=== PATIENT | male | born 1990 | race Two or more races ===

== ENCOUNTER 2016-05-31 15:32 | Emergency (ER) | payer MEDICAID ==
[2016-05-31] MEDS ORDERED: KETOROLAC TROMETHAMINE INJ/PF 30 MG/1 ML SDV IM ONE (16:09)
[2016-05-31] MEDS ORDERED: PROMETHAZINE HCL INJ 50 MG/1 ML VIAL IM ONE (16:10)
[2016-05-31] MEDS ORDERED: DIPHENHYDRAMINE HCL 50 MG/ML VIAL IM ONE (16:11)
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
[2016-05-31] MEDS ORDERED: NORMAL SALINE 1000 ML 1,000 ML IV ONE ×2 (18:06→19:27)
[2016-05-31] MEDS ORDERED: BUTALB/ACETAMINOPHEN/CAFFEINE 1 TAB EACH PO ONE (18:44)
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
[2016-05-31] MEDS ORDERED: MORPHINE SULFATE 10 MG/ML INJ IV ONE (19:27)
[2016-05-31] MEDS ORDERED: HYDROCODONE/ACETAMINOPHEN 5-325 MG 6 TAB/DSPK PO PRN (20:57)
[2016-05-31 22:12] VITALS: BP 116/75
== END 2016-05-31 22:12 | disposition home or self-care (01) ==
LOC: ER 15:32
DX: R51 Headache (principal); H53.149 Visual discomfort, unspecified; F17.200 Nicotine dependence, unspecified, uncomplicated; Z87.820 Personal history of traumatic brain injury
CPT/HCPCS: 99283; 96372; 96361; 96374; J3490; J1200; J1885; J2270; J2550; J7030

== ENCOUNTER 2017-06-20 06:52 | Emergency (ER) | payer MEDICAID ==
[2017-06-20] MEDS ORDERED: CYCLOBENZAPRINE HCL 10 MG TABLET PO ONE (07:58)
[2017-06-20] MEDS ORDERED: METHYLPREDNISOLONE INJ 125 MG/2 ML SDV IM ONE (07:58)
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
[2017-06-20 09:26] VITALS: BP 106/56
== END 2017-06-20 09:26 | disposition home or self-care (01) ==
LOC: ER 06:52
DX: M53.3 Sacrococcygeal disorders, not elsewhere classified (principal); M25.551 Pain in right hip; M54.5 Low back pain; Z86.79 Personal history of other diseases of the circulatory system; F17.200 Nicotine dependence, unspecified, uncomplicated
CPT/HCPCS: 99283; 96372; 73502; 72202; J3490; J2930

== ENCOUNTER 2017-07-05 12:46 | Emergency (ER) | payer OTHER, MEDICAID ==
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
[2017-07-05] MEDS ORDERED: DIPH/PERTUSS(ACELL)/TETANUS VAC/PF 0.5 ML SYR (>=10YO) IM ONE (13:11)
[2017-07-05] MEDS ORDERED: HYDROMORPHONE HCL INJ/PF 2 MG/ML AMPULE IV ONE ×2 (13:12→17:06)
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
[2017-07-05 17:25] VITALS: BP 118/67
--- NOTE | 2017-07-05 18:01 | EKG REPORT ---
SEVERITY:- NORMAL ECG - SINUS RHYTHM : Confirmed by: Tarik Garcias 05-Jul-2017 18:00:39
== END 2017-07-05 18:05 | disposition home or self-care (01) ==
LOC: ER 12:46
DX: S29.012A Strain of muscle and tendon of back wall of thorax, initial encounter (principal); S20.312A Abrasion of left front wall of thorax, initial encounter; M25.512 Pain in left shoulder; M54.2 Cervicalgia; M54.5 Low back pain; R10.814 Left lower quadrant abdominal tenderness; F17.200 Nicotine dependence, unspecified, uncomplicated; V43.52XA Car driver injured in collision with other type car in traffic accident, initial encounter; F12.10 Cannabis abuse, uncomplicated; I25.2 Old myocardial infarction; Z86.73 Personal history of transient ischemic attack (TIA), and cerebral infarction without residual deficits
CPT/HCPCS: 93005; 96376; 99284; 90471; 96374; 72050; 71046; 73030; 72070; 73552; 73560; 73590; 74177; 90715; 93010; J1170

== ENCOUNTER 2017-07-06 02:13 | Emergency (ER) | payer MEDICAID, OTHER ==
[2017-07-06 02:17] VITALS: BP 130/74
== END 2017-07-06 03:02 | disposition left against medical advice (07) ==
LOC: ER 02:13
DX: Z53.21 Procedure and treatment not carried out due to patient leaving prior to being seen by health care provider (principal); M25.579 Pain in unspecified ankle and joints of unspecified foot

== ENCOUNTER 2018-04-11 14:44 | Emergency (ER) | payer MEDICAID ==
[2018-04-11] MEDS ORDERED: DIPHENHYDRAMINE HCL 50 MG/ML VIAL IV ONE (16:05)
[2018-04-11] MEDS ORDERED: METOCLOPRAMIDE HCL INJ/PF 10 MG/2 ML SDV IV ONE (16:05)
[2018-04-11] MEDS ORDERED: RINGERS SOLUTION,LACTATED 1,000 ML IV ONE (16:05)
[2018-04-11] MEDS ORDERED: KETOROLAC TROMETHAMINE INJ/PF 30 MG/1 ML SDV IV ONE ×2 (16:05→16:06)
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
[2018-04-11 16:41] LABS: ABSOLUTE BASOPHILS # (AUTO) 0.1 10^3/uL (0.0-0.2); ABSOLUTE EOSINOPHILS # (AUTO) 0.1 10^3/uL (0.0-0.6); ABSOLUTE MONOCYTES (AUTO) 0.6 10^3/uL (0.1-1.4); ABSOLUTE NEUT (AUTO) 7.5 10^3/uL (1.7-8.2); BASOPHILS % (AUTO) 0.5 % (0-2); EOSINOPHILS % (AUTO) 1.4 % (0-6); HEMATOCRIT 45.5 % (37.9-51.0); HEMOGLOBIN 15.9 g/dL (13.5-17.0); LYMPHOCYTES % (AUTO) 19.3 % (13-45); MEAN CORPUSCULAR HEMOGLOBIN 32.4 pg (27.0-33.4); MEAN CORPUSCULAR HGB CONC 34.8 g/dL (32.0-36.0); MEAN CORPUSCULAR VOLUME 93 fl (80-97); MONOCYTES % (AUTO) 5.4 % (3-13); PLATELET COUNT 235 10^3/uL (150-450); RED CELL DISTRIBUTION WIDTH 13.3 % (11.5-14.0); SEGMENTED NEUTROPHILS % (AUTO) 73.4 % (42-78); TOTAL CELLS COUNTED % (AUTO) 100 %; WHITE BLOOD COUNT 10.2 10^3/uL (4.0-10.5)
[2018-04-11 17:00] LABS: ALANINE AMINOTRANSFERASE < 6 U/L (21-72); ALBUMIN 5.2 g/dL (3.5-5.0); ALKALINE PHOSPHATASE 64 U/L (38-126); ANION GAP 10 (5-19); ASPARTATE AMINO TRANSFERASE 24 U/L (17-59); BILIRUBIN,DIRECT 0.2 mg/dL (0.0-0.4); BILIRUBIN,TOTAL 1.4 mg/dL (0.2-1.3); BLOOD UREA NITROGEN 13 mg/dL (7-20); CALCIUM 10.6 mg/dL (8.4-10.2); CARBON DIOXIDE 28 mmol/L (22-30); CHLORIDE 102 mmol/L (98-107); GLUCOSE 105 mg/dL (75-110); POTASSIUM 4.5 mmol/L (3.6-5.0); SODIUM 140.2 mmol/L (137-145); TOTAL PROTEIN 8.6 g/dL (6.3-8.2)
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
[2018-04-11 18:09] LABS: APPEARANCE,URINE CLEAR; BILIRUBIN,URINE NEGATIVE (NEGATIVE); COLOR,URINE YELLOW; GLUCOSE, URINE NEGATIVE (NEGATIVE); KETONES,URINE NEGATIVE (NEGATIVE); LEUKOCYTE ESTERASE,URINE SMALL (NEGATIVE); NITRITE,URINE NEGATIVE (NEGATIVE); PROTEIN,URINE NEGATIVE (NEGATIVE); URINE SPECIFIC GRAVITY 1.011; UROBILINOGEN,URINE NEGATIVE mg/dL (<2.0)
[2018-04-11 18:18] LABS: URINE AMPHETAMINES SCREEN NEGATIVE; URINE BARBITURATES SCREEN NEGATIVE; URINE BENZODIAZEPINES SCREEN NEGATIVE; URINE COCAINE SCREEN NEGATIVE; URINE MARIJUANA (THC) SCREEN UNCONFIRMED POSITIVE; URINE METHADONE SCREEN NEGATIVE; URINE PHENCYCLIDINE SCREEN NEGATIVE
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
[2018-04-11 18:46] VITALS: BP 115/68
== END 2018-04-11 18:53 | disposition home or self-care (01) ==
LOC: ER 14:44
DX: R51 Headache (principal); R42 Dizziness and giddiness; R11.2 Nausea with vomiting, unspecified; R53.1 Weakness; F17.210 Nicotine dependence, cigarettes, uncomplicated; I50.9 Heart failure, unspecified; I25.2 Old myocardial infarction; Z86.73 Personal history of transient ischemic attack (TIA), and cerebral infarction without residual deficits
CPT/HCPCS: 99406; 99284; 96361; 96374; 96375; 36415; 85025; 80053; 81001; 80307; 70450; J1200; J1885; J2765; J7120

== ENCOUNTER 2019-03-25 15:45 | Emergency (ER) | payer SELFPAY ==
--- NOTE | 2019-03-25 17:00 | ER Document Report ---
ED General <YUMIKO DAVALOS - Last Filed: 03/25/19 17:10> - General Mode of Arrival: Ambulatory Information source: Patient TRAVEL OUTSIDE OF THE [place] IN LAST 30 DAYS: No - HPI Onset: Just prior to arrival Quality of pain: No pain Associated symptoms: None Exacerbated by: Denies Relieved by: Denies Similar symptoms previously: Yes Recently seen / treated by doctor: No - Related Data Home Medications: denies <LURDES MERCEDES - Last Filed: 03/25/19 18:40> - General Chief Complaint: Suicidal Ideation Stated Complaint: SUICIDAL IDEATION Time Seen by Provider: 03/25/19 16:48 Notes: 28-year-old male presents emergency department brought over by in [facility] on July for reports of suicidal ideations. Patient reports that he was living at the [facility] because he is homeless. He reports there MPs came through and found a weed crystal flat grinder. Apparently he was taken to [facility]. He reports they were really pressuring him to give out drug dealers. He reports he got very tired of it and told them just to shoot him. Reports he just wanted to kill himself. He reports he is attempted suicide twice in the past. Once with overdose once by hanging himself. Patient reports he has a history of PTSD anxiety depression. Reports he has been on the streets for the past 7 years. Reports he used to li ve in [place] but he came down here to be with his daughter's mom. Apparently his daughter's mother a [employer]. He denies any fever vomiting diarrhea. Matthew Patel, is in the room with patient. Patient reports he would like some help. The plan is after medically cleared he will be discharged and go to [place]. Patient is agreeable to this. (LURDES MERCEDES) - Related Data Allergies/Adverse Reactions: No Known Allergies Allergy (Verified 04/11/18 14:51) Past Medical History - General Information source: Patient - Social History Smoking Status: Current Every Day Smoker Chew tobacco use (# tins/day): No Frequency of alcohol use: None Drug Abuse: Marijuana Lives with: Homeless Family History: Reviewed & Not Pertinent Patient has suicidal ideation: Yes Patient has homicidal ideation: No - Past Medical History Cardiac Medical History: Reports: Hx Heart Attack - FL from smoking K2 Neurological Medical History: Reports: Hx Cerebrovascular Accident - Stroke from smoking K2, Hx Migraine Renal/ Medical History: Denies: Hx Peritoneal Dialysis Musculoskeletal Medical History: Reports Hx Musculoskeletal Deformity, Reports Hx Musculoskeletal Trauma Psychiatric Medical History: Reports: Hx Anxiety, Hx Depression, Hx Post Traumatic Stress Disorder - Life experiences Traumatic Medical History: Reports: Hx Traumatic Brain Injury Surgical Hx: Negative - Immunizations Hx Diphtheria, Pertussis, Tetanus Vaccination: No <LURDES MERCEDES - Last Filed: 03/25/19 18:40> Review of Systems <LURDES MERCEDES - Last Filed: 03/25/19 18:40> - Review of Systems Notes: Review HPI for review of systems., All other systems negative (LURDES MERCEDES) Physical Exam <LURDES MERCEDES - Last Filed: 03/25/19 18:40> - Vital signs Vitals: Temp Pulse Resp BP Pulse Ox 98.2 F 78 20 133/87 H 100 03/25/19 15:47 03/25/19 15:47 03/25/19 15:47 03/25/19 15:47 03/25/19 15:47 - Notes Notes: PHYSICAL EXAMINATION: GENERAL: Well-appearing and in no acute distress HEAD: Atraumatic, normocephalic. EYES: extraocular movements intact, sclera anicteric, conjunctiva are normal. ENT: nares patent, Moist mucous membranes. NECK: Normal range of motion, supple without lymphadenopathy HEART: Regular rate and rhythm without LUNGS: CTAB and equal. No wheezes rales or rhonchi. murmurs ABDOMEN: Soft, no tenderness. No guarding, no rebound EXTREMITIES: Normal range of motion, NEUROLOGICAL: Cranial nerves grossly intact. Normal sensory/motor exams. PSYCH: Normal mood, normal affect. calm SKIN: Warm, Dry, normal turgor, no rashes or lesions noted (LURDES MERCEDES) Course - Laboratory Result Diagrams: 03/25/19 16:48 03/25/19 16:48 <YUMIKO DAVALOS - Last Filed: 03/25/19 17:10> - Laboratory Result Diagrams: 03/25/19 16:48 03/25/19 16:48 - EKG Interpretation by Me EKG shows normal: Sinus rhythm Rate: Normal Rhythm: NSR When compared to previous EKG there are: No significant change <LURDES MERCEDES - Last Filed: 03/25/19 18:40> - Re-evaluation Re-evalutation: 03/25/19 18:12 All labs resulted unremarkable. Positive for marijuana and cocaine. EKG normal sinus rhythm no significant changes from last EKG.. Patient will be discharged to follow-up with [facility]. Patient has a friend in the room with him. Patient verbalized understanding to plan of care and agrees. Patient was discharged with packet of labs to follow-up with [facility]. Laboratory 03/25/19 03/25/19 03/25/19 16:48 16:48 16:48 WBC 9.2 RBC 4.63 Hgb 14.7 Hct 42.9 MCV 93 MCH 31.8 MCHC 34.3 RDW 12.7 Plt Count 223 Lymph % (Auto) 24.3 Summers % (Auto) 6.7 Eos % (Auto) 4.9 Baso % (Auto) 0.4 Absolute Neuts (auto) 5.9 Absolute Lymphs (auto) 2.2 Absolute Monos (auto) 0.6 Absolute Eos (auto) 0.5 Absolute Basos (auto) 0.0 Seg Neutrophils % 63.7 Sodium 140.2 Potassium 4.3 Chloride 100 Carbon Dioxide 31 H Anion Gap 9 BUN 14 Creatinine 1.09 Est GFR ( Amer) > 60 Est GFR (MDRD) Non-Af > 60 Glucose 87 Calcium 10.0 Total Bilirubin 1.0 Direct Bilirubin 0.1 Neonat Total Bilirubin Not Reportable Neonat Direct Bilirubin Not Reportable Neonat Indirect Bili Not Reportable AST 24 ALT 13 Alkaline Phosphatase 66 Total Protein 8.3 H Albumin 4.9 Urine Color YELLOW Urine Appearance CLEAR Urine pH 6.0 Ur Specific [place] 1.017 Urine Protein NEGATIVE Urine Glucose (UA) NEGATIVE Urine Ketones NEGATIVE Urine Blood NEGATIVE Urine Nitrite NEGATIVE Urine Bilirubin NEGATIVE Urine Urobilinogen NEGATIVE Ur Leukocyte Esterase TRACE H Urine WBC (Auto) 9 Urine RBC (Auto) 1 Squamous Epi Cells Auto <1 Urine Mucus (Auto) FEW Urine Ascorbic Acid NEGATIVE Salicylates < 1.0 L Urine Opiates Screen Urine Methadone Screen Acetaminophen < 10 L Ur Barbiturates Screen Ur Phencyclidine Scrn Ur Amphetamines Screen U Benzodiazepines Scrn Urine Cocaine Screen U Marijuana (THC) Screen Serum Alcohol < 10 03/25/19 16:48 WBC RBC Hgb Hct MCV MCH MCHC RDW Plt Count Lymph % (Auto) Summers % (Auto) Eos % (Auto) Baso % (Auto) Absolute Neuts (auto) Absolute Lymphs (auto) Absolute Monos (auto) Absolute Eos (auto) Absolute Basos (auto) Seg Neutrophils % Sodium Potassium Chloride Carbon Dioxide Anion Gap BUN Creatinine Est GFR ( Amer) Est GFR (MDRD) Non-Af Glucose Calcium Total Bilirubin Direct Bilirubin Neonat Total Bilirubin Neonat Direct Bilirubin Neonat Indirect Bili AST ALT Alkaline Phosphatase Total Protein Albumin Urine Color Urine Appearance Urine pH Ur Specific [place] Urine Protein Urine Glucose (UA) Urine Ketones Urine Blood Urine Nitrite Urine Bilirubin Urine Urobilinogen Ur Leukocyte Esterase Urine WBC (Auto) Urine RBC (Auto) Squamous Epi Cells Auto Urine Mucus (Auto) Urine Ascorbic Acid Salicylates Urine Opiates Screen NEGATIVE Urine Methadone Screen NEGATIVE Acetaminophen Ur Barbiturates Screen NEGATIVE Ur Phencyclidine Scrn NEGATIVE Ur Amphetamines Screen NEGATIVE U Benzodiazepines Scrn NEGATIVE Urine Cocaine Screen UNCONFIRMED POSITIVE U Marijuana (THC) Screen UNCONFIRMED POSITIVE Serum Alcohol 03/25/19 18:39 03/25/19 18:39 (LURDES MERCEDES) - Vital Signs Vital signs: Temp Pulse Resp BP Pulse Ox 98.1 F 78 16 128/74 H 99 03/25/19 18:35 03/25/19 18:35 03/25/19 18:35 03/25/19 18:35 03/25/19 18:35 - Laboratory Laboratory results interpreted by me: 03/25/19 03/25/19 16:48 16:48 Carbon Dioxide 31 H Total Protein 8.3 H Ur Leukocyte Esterase TRACE H Salicylates < 1.0 L Acetaminophen < 10 L - EKG Interpretation by Me Additional EKG results interpreted by me: 03/25/19 18:[address] elevation no T wave inversion (LURDES MERCEDES) Discharge <YUMIKO DAVALOS - Last Filed: 03/25/19 17:10> <LURDES MERCEDES - Last Filed: 03/25/19 18:40> - Discharge Clinical Impression: Suicidal ideation Condition: Stable Disposition: HOME, SELF-CARE Additional Instructions: You have been evaluated by both medical and behavioral health teams for suicidal ideation and have been deemed appropriate for discharge. While you were in the Emergency Department you received the following services: medical, psychiatric/psychological, nursing, regional safety manager and security, environmental in addition to psychoeducation and resources/referrals. A voluntary bed has been obtained for you at the [facility] to further assist with obtaining resources, outpatient services, and respite during this current crisis. You are highly encouraged to follow through this voluntary placement. DEPRESSION: Your evaluation reveals that you have mental depression. While symptoms may be vague, they often include disturbance of sleep, fatigue, loss of appetite, and general loss of interest in life. While depression may be a side effect of drugs, or a reaction to a major change in your life, many cases have no known cause. If depression is acute, and related to a major loss in your life, you can expect it to clear completely with time. If you have been depressed a long time, are prone to repeated bouts of depression or low mood, or have been thinking of suicide, get help. Depression can be treated with anti-depressant medication and counselling. Long-term depression will often take a few weeks to clear, even with appropriate medication. Follow-up care is important. SUICIDAL IDEATION: Suicidal ideation is a common medical term for thoughts about suicide, which may be as detailed as a formulated plan, without the suicidal act itself. Although most people who undergo suicidal ideation do not commit suicide, some go on to make suicide attempts. The range of suicidal ideation varies greatly from fleeting to detailed planning, role playing, and unsuccessful attempts. While thoughts about suicide are common, most people do not carry out serious actions to commit suicide. Based upon your evaluation and discussion with you, we do not believe you are currently at risk to act upon your thoughts of suicide. You have agreed to return to the Emergency Department, at any time, if you feel inclined to act upon your suicidal thoughts. FOLLOW-UP CARE: If you have been referred to a physician for follow-up care, call the physician s office for an appointment as you were instructed or within the next two days. If you experience worsening or a significant change in your symptoms, notify the physician immediately or return to the Emergency Department at any time for re-evaluation.
--- NOTE | 2019-03-25 17:09 | PSYCHOLOGICAL NOTE ---
Psych Note - Psych Note Date seen by psych provider: 03/25/19 Time seen by psych provider: 16:15 Psych Note: Reason For Consult:Suicidal ideation Consent Permissions:none provided Patient discloses that he has been homeless for 7 years after the mother of his child left him stranded in the local area. He denies having any friends or family stating that he was in the foster system prior to in [place]. He discloses that he was at [employer] at closing time and [employer] stated they could not in good conscience let him sleep out in the cold so brought him back to their barracks to sleep. He reports that the command came through and saw him and said he could not be there. 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 He disclosed heightened anxiety thinking he was in extreme trouble when it was not his marijuana. 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 He reports that instead of taking him off base they took him to [facility] where they "interrogated" him. He reports they were demanding to know the dealer of the marijuana and other details. He reports that he became very distraught and asked them to shoot him. He discloses continued dysphoria on the direction of his life and how he has not accomplished anything. He denies plan on how to harm himself just thoughts of wanting to . Patient has never received medical treatment or psychiatric treatment for harming himself. He discloses he would like help however he does not know what to do or how to get help. He confirms he be very grateful for assistance and a voluntary bed at the [facility]. Clinician contacted [facility]. They confirm they have a voluntary bed available and would gladly assist the patient in respite overnight with continued assistance in establishing outpatient providers and contact with resources. Patient is alert and orientated to person, place, time and circumstance. Mood is dysphoric with tearful affect. Patient reports passive suicidal ideation ie no plans means or intent. Patients denies homicidal ideation. Delusions are absent and behaviors congruent with an intact reality based presentation ie organized and linear thought process. Eye contact is poor. Conversational speech is within normal rate, tone and prosody. Intellectual abilities appear to be within the average range. Attention and concentration are good. Insight, judgment, impulse control are fair. Impression\\plan: Patient is cleared from acute psychiatric services. Patient discloses passive suicidal ideation i.e. no true plans means or intent. Patient did make suicidal comment under duress when being "[place]rog[place]" [place] [employer] [place] the barracks and having marijuana. Patient states he be very grateful for assistance. Patient does have a voluntary bed at [facility] for further assistance in respite and continued assistance in establishing outpatient providers in contact with resources. Dr. Sorto was consulted to care management of this patient; attending physicians in agreement with recommendations and disposition.
[2019-03-25 17:14] LABS: ABSOLUTE EOSINOPHILS # (AUTO) 0.5 10^3/uL (0.0-0.6); ABSOLUTE LYMPHOCYTES (AUTO) 2.2 10^3/uL (0.5-4.7); ABSOLUTE MONOCYTES (AUTO) 0.6 10^3/uL (0.1-1.4); ABSOLUTE NEUT (AUTO) 5.9 10^3/uL (1.7-8.2); BASOPHILS % (AUTO) 0.4 % (0-2); EOSINOPHILS % (AUTO) 4.9 % (0-6); HEMATOCRIT 42.9 % (37.9-51.0); HEMOGLOBIN 14.7 g/dL (13.5-17.0); LYMPHOCYTES % (AUTO) 24.3 % (13-45); MEAN CORPUSCULAR HEMOGLOBIN 31.8 pg (27.0-33.4); MEAN CORPUSCULAR HGB CONC 34.3 g/dL (32.0-36.0); MEAN CORPUSCULAR VOLUME 93 fl (80-97); MONOCYTES % (AUTO) 6.7 % (3-13); PLATELET COUNT 223 10^3/uL (150-450); RED BLOOD COUNT 4.63 10^6/uL (4.35-5.55); RED CELL DISTRIBUTION WIDTH 12.7 % (11.5-14.0); SEGMENTED NEUTROPHILS % (AUTO) 63.7 % (42-78); TOTAL CELLS COUNTED % (AUTO) 100 %; WHITE BLOOD COUNT 9.2 10^3/uL (4.0-10.5)
[2019-03-25 17:24] LABS: APPEARANCE,URINE CLEAR; BILIRUBIN,URINE NEGATIVE (NEGATIVE); COLOR,URINE YELLOW; GLUCOSE, URINE NEGATIVE (NEGATIVE); KETONES,URINE NEGATIVE (NEGATIVE); LEUKOCYTE ESTERASE,URINE TRACE (NEGATIVE); NITRITE,URINE NEGATIVE (NEGATIVE); PROTEIN,URINE NEGATIVE (NEGATIVE); URINE SPECIFIC GRAVITY 1.017; UROBILINOGEN,URINE NEGATIVE mg/dL (<2.0)
[2019-03-25 17:30] LABS: ALBUMIN 4.9 g/dL (3.5-5.0); ALKALINE PHOSPHATASE 66 U/L (38-126); ANION GAP 9 (5-19); ASPARTATE AMINO TRANSFERASE 24 U/L (17-59); BILIRUBIN,DIRECT 0.1 mg/dL (0.0-0.4); BLOOD UREA NITROGEN 14 mg/dL (7-20); CARBON DIOXIDE 31 mmol/L (22-30); CHLORIDE 100 mmol/L (98-107); GLUCOSE 87 mg/dL (75-110); POTASSIUM 4.3 mmol/L (3.6-5.0); TOTAL PROTEIN 8.3 g/dL (6.3-8.2)
[2019-03-25 17:33] LABS: ACETAMINOPHEN < 10 ug/mL (10-30); ALCOHOL < 10 mg/dL (NONE DETECTED); SALICYLATE < 1.0 mg/dL (2.0-20.0)
[2019-03-25 17:40] LABS: URINE AMPHETAMINES SCREEN NEGATIVE; URINE BARBITURATES SCREEN NEGATIVE; URINE BENZODIAZEPINES SCREEN NEGATIVE; URINE METHADONE SCREEN NEGATIVE; URINE PHENCYCLIDINE SCREEN NEGATIVE
[2019-03-25 17:43] LABS: URINE COCAINE SCREEN UNCONFIRMED POSITIVE; URINE MARIJUANA (THC) SCREEN UNCONFIRMED POSITIVE
[2019-03-25 18:36] VITALS: BP 128/74
--- NOTE | 2019-03-25 18:46 | EKG REPORT ---
SEVERITY:- NORMAL ECG - SINUS RHYTHM : Confirmed by: Tarik Garcias 25-Mar-2019 18:45:52
== END 2019-03-25 18:37 | disposition home or self-care (01) ==
LOC: ER 15:45
DX: R45.851 Suicidal ideations (principal); F43.10 Post-traumatic stress disorder, unspecified; Z59.0 Homelessness; F17.200 Nicotine dependence, unspecified, uncomplicated; I25.2 Old myocardial infarction; Z86.73 Personal history of transient ischemic attack (TIA), and cerebral infarction without residual deficits; Z87.820 Personal history of traumatic brain injury
CPT/HCPCS: 36415; 80053; 80307; 81001; 85025; 93005; 93010; 99285